=== PATIENT | male | born 1940 | race Caucasian/White ===

== ENCOUNTER → 2024-05-19 08:29 | Outpatient (REF) | payer MEDICARE, OTHER, SELFPAY ==
[2024-05-19 11:42] LABS: ALT (SGPT) 15 U/L (0-50); AST (SGOT) 27 U/L (17-59); Albumin 4.2 g/dl (3.5-5.0); Alkaline Phosphatase 68 U/L (38-126); Blood Urea Nitrogen 18 mg/dl (9-20); Calcium 9.1 mg/dl (8.4-10.2); Carbon Dioxide 26 mmol/L (22-30); Chloride 104 mmol/L (98-107); Glucose 89 mg/dl (70-99); HDL Cholesterol 69 mg/dl; LDL Cholesterol, Calculated 84 mg/dl; Potassium 4.9 mmol/L (3.5-5.1); Sodium 142 mmol/L (135-145); Total Bilirubin 0.9 mg/dl (0.2-1.3); Total Cholesterol 171 mg/dl (50-199); Total Protein 6.4 g/dl (6.3-8.2); Triglyceride 90 mg/dl (10-149); Very Low Density Lipoprotein 18 mg/dl (0-30); eGFR > 60.00
== END ==
LOC: REG 08:29
PROVIDERS: ATTENDING PHYSICIAN Family Medicine
DX: E78.00 Pure hypercholesterolemia, unspecified (principal); I10 Essential (primary) hypertension
CPT/HCPCS: 36415; 80053; 80061

== ENCOUNTER → 2024-09-28 10:06 | Outpatient (REF) | payer MEDICARE, OTHER, SELFPAY ==
[2024-09-28 11:12] LABS: % Basophils 0.7 % (0-2); % Immature Granulocytes 0.2 % (0-0.5); % Lymphocytes 21.5 % (20.5-51.1); % Monocytes 10.2 % (1.7-9.3); % Neutrophils 65.4 % (42.2-75.2); Absolute Eosinophils 0.1 10^3/uL (0-0.7); Absolute Lymphocytes 1.3 10^3/uL (1.2-3.4); Absolute Monocytes 0.6 10^3/uL (0.1-0.6); Hematocrit 43.8 % (39.0-52.0); Hemoglobin 14.8 g/dL (13.0-18.0); Mean Corp Hgb Conc. 33.8 g/dL (33.0-37.0); Mean Corpuscular Hgb 30.9 pg (27.0-31.0); Mean Corpuscular Volume 91.4 fL (80.0-94.0); Mean Platelet Volume 9.4 fL (7.4-10.4); Nucleated Red Blood Cells % 0 % (-); Platelet Count 297 10^3/uL (130-400); Red Blood Cell Count 4.79 10^6/uL (4.70-6.10); Red Cell Dist. Width 13.8 % (11.5-14.5); White Blood Cell Count 6.1 10^3/uL (4.8-10.8)
[2024-09-28 11:37] LABS: ALT (SGPT) 15 U/L (0-50); AST (SGOT) 24 U/L (17-59); Albumin 4.4 g/dl (3.5-5.0); Alkaline Phosphatase 72 U/L (38-126); Blood Urea Nitrogen 19 mg/dl (9-20); Calcium 9.6 mg/dl (8.4-10.2); Carbon Dioxide 30 mmol/L (22-30); Chloride 100 mmol/L (98-107); Glucose 98 mg/dl (70-99); Sodium 136 mmol/L (135-145); Total Bilirubin 1.2 mg/dl (0.2-1.3); Total Protein 6.9 g/dl (6.3-8.2); eGFR > 60.00
[2024-09-28 12:06] LABS: PSA, Total - Screen 3.01 ng/ml (0.0-4.0); TSH Reflex To Free T4 2.94 uIU/ml (0.47-4.68)
== END ==
LOC: REG 10:06
PROVIDERS: ATTENDING PHYSICIAN Family Medicine; FAMILY PHYSICIAN Family Medicine
DX: I10 Essential (primary) hypertension (principal); R63.4 Abnormal weight loss; Z12.5 Encounter for screening for malignant neoplasm of prostate
CPT/HCPCS: 36415; 80053; 84443; 85025; G0103

== ENCOUNTER 2025-06-05 06:27 | Day surgery (SDC) | payer MEDICARE, OTHER, SELFPAY | END 2025-06-05 10:52 | disposition home or self-care (01) | LOC: GI 06:27 | PROVIDERS: ATTENDING PHYSICIAN Internal Medicine Gastroenterology | DX: Z12.11 Encounter for screening for malignant neoplasm of colon (principal); K57.30 Diverticulosis of large intestine without perforation or abscess without bleeding; K64.8 Other hemorrhoids; Z80.0 Family history of malignant neoplasm of digestive organs | CPT/HCPCS: G0105 ==

== ENCOUNTER 2025-08-10 16:12 | Emergency (ER) | payer MEDICARE, OTHER, SELFPAY ==
[2025-08-10 16:18] VITALS: BP 131/90
[2025-08-10 16:44] VITALS: BMI 28.9
[2025-08-10 16:52] VITALS: BP 139/87
[2025-08-10 17:00] VITALS: BP 140/86
[2025-08-10 17:06] LABS: Hematocrit 42.5 % (39.0-52.0); Hemoglobin 14.5 g/dL (13.0-18.0); Mean Corp Hgb Conc. 34.1 g/dL (33.0-37.0); Mean Corpuscular Volume 88.7 fL (80.0-94.0); Platelet Count 263 10^3/uL (130-400); Red Cell Dist. Width 13.5 % (11.5-14.5)
[2025-08-10 17:26] LABS: COVID-19 Antigen Negative (Negative)
[2025-08-10 17:30] LABS: ALT (SGPT) 18 U/L (0-50); AST (SGOT) 24 U/L (17-59); Albumin 4.4 g/dl (3.5-5.0); Alkaline Phosphatase 72 U/L (38-126); Blood Urea Nitrogen 13 mg/dl (9-20); Calcium 9.3 mg/dl (8.4-10.2); Carbon Dioxide 28 mmol/L (22-30); Chloride 104 mmol/L (98-107); Estimated Creatinine Clearance 64 ml/min; Glucose 102 mg/dl (70-99); Potassium 4.6 mmol/L (3.5-5.1); Sodium 138 mmol/L (135-145); Total Protein 7.1 g/dl (6.3-8.2); eGFR > 60.00
[2025-08-10 17:52] LABS: Urine Character Clear (Clear)
--- NOTE | 2025-08-10 18:01 | ED.GENMED ---
History of Present Illness
General
Chief Complaint: Weakness
Time Seen by Provider: 08/10/25 16:27
History of Present Illness
History of Present Illness:
85-year-old male with history of hypertension, hyperlipidemia, diet-controlled diabetes presents to the emergency department for evaluation of lightheadedness and gait instability beginning upon awakening this morning. Denies vertiginous symptoms.
Denies any headache, fever, vision loss, chest pain, or shortness of breath. He is able to ambulate without falling and denies diffuse weakness. No ill contacts at home. 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
does not sleep as often as he would prefer
Past History
Past History
ED Past Medical History: Hypercholesterolemia
ED Past Surgical History: Orthopedic
Social History
Tobacco: Non-smoker
Personal:
Living: with family
Review of Systems
Review of Systems
Allergies reviewed?: Yes
All Other Systems: ROS reviewed and negative except as documented in HPI and ROS
Phy Exam
Physical Exam
Physical Exam:
GEN: Well appearing, NAD, WDWN
Eyes: PERRLA, EOMs intact, no scleral icterus
HENT: NCAT, oral mucosa moist
Lungs: CTAB, no wheezes, rales, rhonchi, normal chest wall excursion
Cardiac: RRR, no M/R/G, no peripheral edema. Radial pulses 2+ bilat
Abdomen: S, NT, ND, NABS, no masses or hepatosplenomegaly
Neuro: AO x 3, no focal deficits to BUE/BLE, normal sensation throughout, gait steady without deficit
MSK: No gross deformity or ecchymosis. No edema. No digital clubbing
Skin: No rashes, petechiae. Normal color, no pallor or jaundice.
Psych: Calm, cooperative, proper hygiene
Course
Orders/Labs/Results
Orders:
Orders
08/10/25 16:53
COVID-19 Antigen Urgent
Source: Nasal Swab
Complete Blood Count/No Diff Urgent
Comprehensive Metabolic Panel Urgent
Influenza A+B Rapid Molecular Urgent
RAFAELA Source: Nasal Swab
Specimen Description:
08/10/25 17:42
Urinalysis Reflex To Culture Urgent
Date Specimen was Collected: 08/10/25
Time Specimen was Collected: 17:35
Abnormal Lab Results
08/10/25 08/10/25
16:53 17:42
Glucose 102 H mg/dl
(70-99)
Urine Ketones 1+ A
(Negative)
08/10/25 16:53
08/10/25 16:53
Vital Signs
Initial and Last Documented VS:
Initial Vital Signs
Temp Pulse Resp BP Pulse Ox
97.5 F 91 20 131/90 95
08/10/25 16:18 08/10/25 16:18 08/10/25 16:18 08/10/25 16:18 08/10/25 16:18
Last Documented Vital Signs
Temp Pulse Resp BP Pulse Ox
97.5 F 68 20 161/87 98
08/10/25 16:18 08/10/25 17:56 08/10/25 17:56 08/10/25 18:04 08/10/25 18:02
MDM/Problems Addressed
MDM/Problems Addressed:
Patient ambulated well throughout the emergency department. Workup was grossly unremarkable. May be self-limited viral syndrome or simply fatigue due to his lack of adequate rest, suitable for outpatient management
*Pulse Oximetry
SaO2: 98
Oxygen Mode of Delivery: Room air
Patient hypoxic: no
*Critical Care Note
Total Time (30-74mins, 75-104mins- exclusive of procedures): Not Applicable
ED Attending Note
-
Portions of this chart may have been created with voice recognition software.� Occasional wrong word or��sound alike� substitutions may have occurred due to the inherent limitations of voice recognition software.
Discharge Plan
Departure
Patient Disposition: Home (Routine Discharge)
Date of Disposition: 08/10/25
Time of Disposition: 18:01
Patient with high blood pressure during this ER visit?: No
Discharge Problem:
Fatigue
Instructions: Generalized Weakness (DC)
Prescriptions:
No Action
simvastatin 20 MG tablet
20 mg PO QPM
lisinopril 20 mg Tablet
20 mg PO HS
amlodipine 5 mg Tablet
5 mg PO DAILY Qty: 30 0RF
aspirin 81 mg Tablet,Chewable
81 mg PO DAILY Qty: 30 0RF
Referrals:
Freya Pedroza MD [Family Provider, Family Practice]
Interventions
Interventions:
*Risk Screen - Suicide Last Done: 08/10/25 16:18
*General Assessment Last Done: 08/10/25 16:18
*Neglect/Abuse Screening Last Done: 08/10/25 16:44
*ED- Fall Risk Assessment Last Done: 08/10/25 16:44
*ED COVID-19 Vaccine History Last Done: 08/10/25 16:44
*ED Influenza Vaccine History Last Done: 08/10/25 16:44
*Nursing Disposition Last Done: 08/10/25 18:08
ED- Cardiac Assessment Last Done: 08/10/25 17:01
ED- Neurological Assessment Last Done: 08/10/25 17:01
ED- Pulmonary Assessment Last Done: 08/10/25 17:01
Discharge Date and Time
Discharge Date/Time: 08/10/25 18:16
Print Language: IVORIAN
[2025-08-10 18:04] VITALS: BP 161/87
== END 2025-08-10 18:16 | disposition home or self-care (01) ==
LOC: EMR 16:12
PROVIDERS: Physician Assistant; EMERGENCY PHYSICIAN Emergency Medicine; FAMILY PHYSICIAN Family Medicine
DX: R53.1 Weakness (principal); E11.9 Type 2 diabetes mellitus without complications; I10 Essential (primary) hypertension; E78.00 Pure hypercholesterolemia, unspecified; Z63.79 Other stressful life events affecting family and household; Z79.82 Long term (current) use of aspirin
CPT/HCPCS: 99283; 80053; 81003; 85027; 87502; 87811